=== PATIENT | male | born 1985 | race Caucasian/White ===

== ENCOUNTER 2016-07-18 23:35 | Emergency (ER) | payer SELFPAY ==
[2016-07-19 01:27] VITALS: BP 97/54; PULSE 98; TEMP 98.9; BMI 30.9
== END 2016-07-19 01:40 | disposition left against medical advice (07) ==
LOC: JER 23:35
DX: Z53.21 Procedure and treatment not carried out due to patient leaving prior to being seen by health care provider (principal)
CPT/HCPCS: 99281-25

== ENCOUNTER 2017-12-05 06:48 | Emergency (ER) | payer SELFPAY ==
[2017-12-05 07:19] VITALS: BMI 26.6
--- NOTE | 2017-12-05 07:37 | PDOC ---
History of Present Illness - General History Source: Patient Exam Limitations: No Limitations - History of Present Illness Initial Comments: 12/05/17 08:14 The patient is a 32-year-old male, with no significant past medical history, who presents to the ED with midsternal chest pain that began today at 3 AM. The patient states that the pain is worsened with movement, deep inspiration, and when he coughs. He denies any recent strenuous activity but does admit to smoking marijuana prior to his visit. The patient denies any shortness of breath. He denies any fever, chills, nausea, vomiting, diarrhea, or abdominal pain. Allergies: NKA <Hannah Barger - Last Filed: 12/05/17 08:13> <Elisabeth Leos - Last Filed: 12/05/17 16:47> - General Chief Complaint: Chest Pain Stated Complaint: CHEST DISCOMFORT Time Seen by Provider: 12/05/17 07:37 Past History <Hannah Barger - Last Filed: 12/05/17 08:13> - Past Medical History COPD: No Other medical history: denies - Immunization History Immunization Up to Date: Yes - Suicide/Smoking/Psychosocial Hx Smoking Status: Yes Smoking History: Never smoked Have you smoked in the past 12 months: No Number of Cigarettes Smoked Daily: 1 Information on smoking cessation initiated: No Hx Alcohol Use: No Drug/Substance Use Hx: No Substance Use Type: Marijuana <Elisabeth Leos - Last Filed: 12/05/17 16:47> - Past Medical History Allergies/Adverse Reactions: Allergies Allergy/AdvReac Type Severity Reaction Status Date / Time No Known Allergies Allergy Verified 12/05/17 07:16 Home Medications: Ambulatory Orders NK [No Known Home Medication] 07/19/16 Review of Systems - Review of Systems Able to Perform ROS?: Yes Comments:: 12/05/17 08:21 GENERAL/CONSTITUTIONAL: No fever or chills. No weakness. HEAD, EYES, EARS, NOSE AND THROAT: No change in vision. No ear pain or discharge. No sore throat. CARDIOVASCULAR: (+)Chest pain. No shortness of breath. RESPIRATORY: No cough, wheezing, or hemoptysis. GASTROINTESTINAL: No nausea, vomiting, diarrhea or constipation. GENITOURINARY: No dysuria, frequency, or change in urination. MUSCULOSKELETAL: No joint or muscle swelling or pain. No neck or back pain. SKIN: No rash NEUROLOGIC: No headache, vertigo, loss of consciousness, or change in strength/ sensation. ENDOCRINE: No increased thirst. No abnormal weight change. HEMATOLOGIC/LYMPHATIC: No anemia, easy bleeding, or history of blood clots. ALLERGIC/IMMUNOLOGIC: No hives or skin allergy. <Hannah Barger - Last Filed: 12/05/17 08:13> *Physical Exam - Vital Signs Last Vital Signs Temp Pulse Resp BP Pulse Ox 97.8 F 79 20 117/55 96 12/05/17 07:13 12/05/17 07:13 12/05/17 07:13 12/05/17 07:13 12/05/17 07:13 <Hannah Barger - Last Filed: 12/05/17 08:13> - Vital Signs Last Vital Signs Temp Pulse Resp BP Pulse Ox 97.8 F 79 20 117/55 96 12/05/17 07:13 12/05/17 07:13 12/05/17 07:13 12/05/17 07:13 12/05/17 07:13 - Physical Exam Comments: GENERAL: Awake, alert, and fully oriented, in no acute distress HEAD: No signs of trauma EYES: PERRLA, EOMI, sclera anicteric, conjunctiva clear ENT: Auricles normal inspection, hearing grossly normal, nares patent, oropharynx clear without exudates. Moist mucosa NECK: Normal ROM, supple, no lymphadenopathy, JVD, or masses LUNGS: Breath sounds equal, clear to auscultation bilaterally. No wheezes, and no crackles. +Tenderness to R anterior chest wall. HEART: Regular rate and rhythm, normal S1 and S2, no murmurs, rubs or gallops ABDOMEN: Soft, nontender, normoactive bowel sounds. No guarding, no rebound. No masses EXTREMITIES: Normal range of motion, no edema. No clubbing or cyanosis. No cords, erythema, or tenderness NEUROLOGICAL: Cranial nerves II through XII grossly intact. Normal speech, normal gait SKIN: Warm, Dry, normal turgor, no rashes or lesions noted. <Elisabeth Leos - Last Filed: 12/05/17 16:47> Moderate Sedation - Procedure Monitoring Vital Signs: Vital Signs Temp Pulse Resp BP Pulse Ox 97.8 F 79 20 117/55 96 12/05/17 07:13 12/05/17 07:13 12/05/17 07:13 12/05/17 07:13 12/05/17 07:13 <Hannah Barger - Last Filed: 12/05/17 08:13> - Procedure Monitoring Vital Signs: Vital Signs Temp Pulse Resp BP Pulse Ox 97.8 F 79 20 117/55 96 12/05/17 07:13 12/05/17 07:13 12/05/17 07:13 12/05/17 07:13 12/05/17 07:13 <Elisabeth Leos - Last Filed: 12/05/17 16:47> Heart Score/ECG Review - ECG Impressions Comment:: EKG read 07:38- NSR 69 bpm, no acute ST/T changes <Elisabeth Leos - Last Filed: 12/05/17 16:47> Medical Decision Making - Medical Decision Making Pt with history of marijuana use. CXR obtained, negative for ptx. Pain improved with motrin. Low risk for ACS. Stable for DC home. <Elisabeth Leos - Last Filed: 12/05/17 16:47> *DC/Admit/Observation/Transfer - Attestations Scribe Attestion: 12/05/17 08:22 Documentation prepared by Hannah Barger, acting as medical insurance claims processor for Elisabeth Leos MD. <Hannah Barger - Last Filed: 12/05/17 08:13> - Discharge Dispostion Decision to Admit order: No <Elisabeth Leos - Last Filed: 12/05/17 16:47> Diagnosis at time of Disposition: Marijuana use, Atypical chest pain - Discharge Dispostion Disposition: HOME Condition at time of disposition: Stable - Patient Instructions Printed Discharge Instructions: DI for Atypical Chest Pain
[2017-12-05] MEDS ORDERED: IBUPROFEN 600 MG TABLET (FP) PO ONE ×2 (08:01→08:17)
[2017-12-05 09:47] VITALS: BP 125/77; PULSE 74; TEMP 98.1
--- NOTE | 2017-12-05 14:21 | EKG ---
Test Reason : Blood Pressure : / mmHG Vent. Rate : 066 BPM Atrial Rate : 066 BPM P-R Int : 136 ms QRS Dur : 088 ms QT Int : 396 ms P-R-T Axes : 058 080 046 degrees QTc Int : 415 ms NORMAL SINUS RHYTHM EARLY REPOLARIZATION NORMAL ECG NO PREVIOUS ECGS AVAILABLE Confirmed by DARRYL JORDAN, HALINA ([id number]) on 12/05/2017 2:21:22 PM Referred By: Confirmed By:HALINA ANDREWS MD
== END 2017-12-05 09:47 | disposition home or self-care (01) ==
LOC: JER 06:48
DX: R07.89 Other chest pain (principal); F12.90 Cannabis use, unspecified, uncomplicated
CPT/HCPCS: 71046-TC-FY; 93005; 93010; 99283-25

== ENCOUNTER 2018-07-30 11:13 | Emergency (ER) | payer SELFPAY ==
[2018-07-30 11:41] VITALS: BP 100/62; PULSE 72; TEMP 97.6; BMI 26.6
[2018-07-30] MEDS ORDERED: AZITHROMYCIN 250 MG TABLET PO ONE (12:21)
[2018-07-30] MEDS ORDERED: AZITHROMYCIN 250 MG TABLET ONE (12:28)
--- NOTE | 2018-07-30 12:29 | PDOC ---
History of Present Illness - General Chief Complaint: Penile Drainage Stated Complaint: Cold Symptoms Time Seen by Provider: 07/30/18 12:14 - History of Present Illness Initial Comments: 07/30/18 12:23 33-year-old male without comorbidities presents for evaluation of penile discharge 2 days after unprotected sex with a stripper at a bar Past History - Past Medical History Allergies/Adverse Reactions: Allergies Allergy/AdvReac Type Severity Reaction Status Date / Time No Known Allergies Allergy Verified 07/30/18 11:35 Home Medications: Ambulatory Orders NK [No Known Home Medication] 07/19/16 COPD: No - Immunization History Immunization Up to Date: Yes - Suicide/Smoking/Psychosocial Hx Smoking Status: Yes Smoking History: Current some day smoker Have you smoked in the past 12 months: Yes Number of Cigarettes Smoked Daily: 1 Information on smoking cessation initiated: Yes Hx Alcohol Use: No Drug/Substance Use Hx: Yes (AVIVAA) Substance Use Type: Marijuana *Physical Exam - Vital Signs Last Vital Signs Temp Pulse Resp BP Pulse Ox 97.6 F 72 20 100/62 97 07/30/18 11:35 07/30/18 11:35 07/30/18 11:35 07/30/18 11:35 07/30/18 11:35 - Physical Exam Comments: 07/30/18 12:26 HEAD: NC/AT EYES: Conjuntiva clear MS: Full ROM in all joints without edema NEUROLOGIC: No gross sensory or motor deficits, NVID SKIN: Normal color and temperature no lesions or rashes Moderate Sedation - Procedure Monitoring Vital Signs: Procedure Monitoring Vital Signs Temperature 97.6 F 07/30/18 11:35 Pulse Rate 72 07/30/18 11:35 Respiratory Rate 20 07/30/18 11:35 Blood Pressure 100/62 07/30/18 11:35 O2 Sat by Pulse Oximetry (%) 97 07/30/18 11:35 Medical Decision Making - Medical Decision Making 07/30/18 12:26 HIV and syphilis testing refused will treated for gonorrhea chlamydia the patient follow-up with PCP *DC/Admit/Observation/Transfer Diagnosis at time of Disposition: Sexually transmissible disease - Discharge Dispostion Disposition: HOME Condition at time of disposition: Stable Decision to Admit order: No - Referrals Referrals: Eddi Odom MD [Staff Physician] - - Patient Instructions Printed Discharge Instructions: Chlamydia: The Silent STD, How to Detect and Treat STDs, Facts About Sexually Transmitted Infections Additional Instructions: Please follow-up with primary care provider. Return to the emergency room should symptoms worsen or go unresolved. He was treated today for gonorrhea and chlamydia. - Post Discharge Activity
[2018-07-30 13:32] LABS: URINE APPEARANCE CLEAR; URINE BILIRUBIN NEGATIVE (<2.0 mg/dL); URINE COLOR YELLOW; URINE GLUCOSE (UA) NEGATIVE (NEGATIVE); URINE KETONE NEGATIVE (NEGATIVE); URINE LEUK ESTERASE NEGATIVE (NEGATIVE); URINE NITRITE NEGATIVE (NEGATIVE); URINE PROTEIN NEGATIVE (NEGATIVE); URINE UROBILINOGEN NEGATIVE mg/dL (0.2-1.0)
== END 2018-07-30 12:36 | disposition home or self-care (01) ==
LOC: JERFT 11:13
DX: A64 Unspecified sexually transmitted disease (principal)
CPT/HCPCS: 36415; 81003; 87086; 87491; 87591; 99281-25

== ENCOUNTER 2019-08-02 15:07 | Emergency (ER) | payer SELFPAY ==
[2019-08-02 15:11] VITALS: BMI 26.6
--- NOTE | 2019-08-02 15:33 | PDOC ---
History of Present Illness - General Chief Complaint: Pain Stated Complaint: PAIN TO RT SIDE Time Seen by Provider: 08/02/19 15:15 - History of Present Illness Initial Comments: Mr. Parsons is a 34 y/o male with no significant PMH presenting with right sided chest pain that started yesterday. Reports that he had the flu several weeks ago and a productive blood tinged cough over the past couple of days. Yesterday, the right side of his chest started to hurt. Pain is sharp, intermittent, brought on by deep breathing and coughing. Pain is non reproducible. Patient drove to [place] yesterday and drove back today. Denies leg swelling. Released from prison for 1 year in June. Denies chest pain/fever/chills. Denies abdominal pain. Denies dysuria. Denies change in stool. Past History - Past Medical History Allergies/Adverse Reactions: Allergies Allergy/AdvReac Type Severity Reaction Status Date / Time No Known Allergies Allergy Verified 08/02/19 15:11 Home Medications: Ambulatory Orders NK [No Known Home Medication] 07/19/16 COPD: No - Immunization History Immunization Up to Date: Yes - Psycho Social/Smoking Cessation Hx Smoking Status: Yes Smoking History: Never smoked Have you smoked in the past 12 months: Yes Number of Cigarettes Smoked Daily: 1 Hx Alcohol Use: No Drug/Substance Use Hx: Yes (MARIJUANA) Substance Use Type: Marijuana Review of Systems - Review of Systems Comments:: GENERAL/CONSTITUTIONAL: No fever or chills. No weakness._ HEAD, EYES, EARS, NOSE AND THROAT: No change in vision. No change in hearing. No sore throat._ CARDIOVASCULAR: Reports chest pain. No shortness of breath_ RESPIRATORY: Denies cough, hemoptysis_ GASTROINTESTINAL: No nausea, vomiting, diarrhea or constipation._ GENITOURINARY: No dysuria, frequency, or change in urination._ MUSCULOSKELETAL: No joint or muscle swelling or pain. No neck or back pain._ SKIN: No rash_ NEUROLOGIC: No headache, vertigo, loss of consciousness, or change in strength/ sensation._ ENDOCRINE: No increased thirst. No abnormal weight change_ HEMATOLOGIC/LYMPHATIC: No anemia, easy bleeding, or history of blood clots._ ALLERGIC/IMMUNOLOGIC: No hives or skin allergy._ *Physical Exam - Vital Signs Last Vital Signs Temp Pulse Resp BP Pulse Ox 98 F 73 18 112/66 100 08/02/19 15:08 08/02/19 15:08 08/02/19 15:08 08/02/19 15:08 08/02/19 15:08 - Physical Exam GENERAL: Awake, alert, and oriented to person/place/time, in no acute distress_ HEAD: No signs of trauma, normoc ephalic, atraumatic _ EYES: PERRLA, EOMI, sclera anicteric, conjunctiva clear_ ENT: Hearing grossly normal, nares patent, oropharynx clear without exudates. No uvular deviation. Moist mucosa_ NECK: Normal ROM, supple, no lymphadenopathy, JVD, or masses_ CHEST: No bruising, no rash. No tenderness to palpation. LUNGS: No distress, speaks in full sentences, clear to auscultation bilaterally _ HEART: Regular rate and rhythm, normal S1 and S2, no murmurs appreciated, peripheral pulses normal and equal bilaterally._ ABDOMEN: Soft, nontender, normoactive bowel sounds. No guarding, no rebound. No masses_ EXTREMITIES: Normal inspection, Normal range of motion, no edema. No clubbing or cyanosis_ NEUROLOGICAL: Cranial nerves II through XII grossly intact. Normal speech, normal gait, no focal sensorimotor deficits _ SKIN: Warm, Dry, normal turgor, no rashes or lesions noted_ ED Treatment Course - LABORATORY CBC & Chemistry Diagram: 08/02/19 15:55 08/02/19 15:55 - RADIOLOGY Radiology Studies Ordered: Category Date Time Status CHEST PA & LAT [RAD] Stat Radiology 08/02/19 15:27 Ordered Medical Decision Making - Medical Decision Making 08/02/19 15:32 34 y/o male presenting with right sided chest pain brought on by cough and deep breathing. Drove to [place] yesterday and back today. Released from 1 year in prison in June. HEART score 1. -cbc, cmp -cxr, ekg, trop -d-dimer 08/02/19 16:00 EKG shows NSR, 65 bpm, no ST elevation/depression, QTc 426, no axis deviation. 08/02/19 16:43 CXR shows no acute intrathoracic pathology. 08/02/19 17:04 Labs reviewed. Laboratory Tests 08/02/19 08/02/19 08/02/19 15:55 15:55 15:55 WBC 6.3 RBC 5.32 Hgb 16.1 Hct 48.3 MCV 90.8 MCH 30.3 MCHC 33.4 RDW 13.3 Plt Count 184 MPV 10.1 Absolute Neuts (auto) 2.8 Neutrophils % 44.3 Lymphocytes % 41.8 H Monocytes % 9.1 Eosinophils % 4.4 Basophils % 0.4 Nucleated RBC % 0 D-Dimer Sodium 141 Potassium 4.1 Chloride 107 Carbon Dioxide 31 Anion Gap 3 L BUN 11.1 Creatinine 1.0 Est GFR (CKD-EPI)AfAm 114.11 Est GFR (CKD-EPI)NonAf 98.45 Random Glucose 82 Calcium 8.6 Total Bilirubin 0.2 AST 41 H ALT 68 H Alkaline Phosphatase 96 Creatine Kinase 94 Troponin I < 0.02 Total Protein 6.8 Albumin 3.5 08/02/19 15:55 WBC RBC Hgb Hct MCV MCH MCHC RDW Plt Count MPV Absolute Neuts (auto) Neutrophils % Lymphocytes % Monocytes % Eosinophils % Basophils % Nucleated RBC % D-Dimer 372 Sodium Potassium Chloride Carbon Dioxide Anion Gap BUN Creatinine Est GFR (CKD-EPI)AfAm Est GFR (CKD-EPI)NonAf Random Glucose Calcium Total Bilirubin AST ALT Alkaline Phosphatase Creatine Kinase Troponin I Total Protein Albumin 08/02/19 17:11 Pt reassessed. Reports some improvement with tylenol. Plan to d/c home with tylenol and motrin and rest. D/w the pt who verbalized understanding and agreement with plan. All questions answered. Return precautions given. Discharge - Discharge Information Problems reviewed: Yes Clinical Impression/Diagnosis: Costochondral chest pain, Viral URI with cough Condition: Stable Disposition: HOME - Admission No - Follow up/Referral Referrals: Fab Gay MD [Staff Physician] - - Patient Discharge Instructions Additional Instructions: Please take Tylenol and Motrin as needed for your pain (follow instructions on the package). Please continue to stay hydrated. Please make an appointment with a primary care doctor (referral provided here) if your symptoms do not improve. If you experience any new, worsening, or concerning symptoms, including new or different chest pain, shortness of breath, leg swelling, or any other concerns, please return to the emergency department. - Post Discharge Activity
[2019-08-02] MEDS ORDERED: ACETAMINOPHEN 1000 MG/100 ML VIAL (NON FORMULARY) IVPB ONE (15:54)
[2019-08-02] MEDS ORDERED: ACETAMINOPHEN INJECTION 100 ML IVPB ONE (15:56)
--- NOTE | 2019-08-02 16:10 | PDOC ---
Documentation entered by Kristine Carver SCRIBE, acting as scribe for Jermaine Davenport MD. Jermaine Davenport MD: This documentation has been prepared by the [place], SCRIBE, under my direction and personally reviewed by me in its entirety. I confirm that the documentation accurately reflects all work, treatment, procedures, and medical decision making performed by me. Attending Attestation - Resident Resident Name: Jackelin Marshallhan - ED Attending Attestation I have performed the following: I have examined & evaluated the patient, The case was reviewed & discussed with the resident, I agree w/resident's findings & plan, Exceptions are as noted - HPI HPI: 08/02/19 16:10 34 M with no PMH presents to ED with R sided chest pain. Pt reports that he had a URI several weeks ago. Over the past few days, he began to develop a cough. Reports blood streaks in the sputum. Denies F/C. Yesterday, noted that his R chest started to hurt. Pain is worse with deep inspiration and coughing. - Physicial Exam PE: 08/02/19 16:11 "GENERAL: Awake, alert, and fully oriented, in no acute distress. HEAD: No signs of trauma EYES: PERRLA, EOMI, sclera anicteric, conjunctiva clear ENT: Auricles normal inspection, hearing grossly normal, nares patent, oropharynx clear without exudates. Moist mucosa NECK: Nontender, no stepoffs, Normal ROM, supple, no lymphadenopathy, JVD, or masses LUNGS: Breath sounds equal, clear to auscultation bilaterally. No wheezes, and no crackles HEART: Regular rate and rhythm, normal S1 and S2, no murmurs, rubs or gallops ABDOMEN: Soft, nontender, normoactive bowel sounds. No guarding, no rebound. No masses EXTREMITIES: Normal range of motion, no edema. No clubbing or cyanosis. No cords, erythema, or tenderness NEUROLOGICAL: Cranial nerves II through XII intact. 5/5 strength and sensation in all extremities, Normal speech, normal gait, normal cerebellar function SKIN: Warm, Dry, normal turgor, no rashes or lesions noted. - Medical Decision Making 08/02/19 16:12 34 M with pleuritic R side chest pain. Likely 2/2 URI. Will r/o PNA. PE unlikely but will send Ddimer. - Labs, trop, ddimer - CXR Labs and XR wnl Pt is well appearing, with normal vitals. Clinically stable for DC at this time. I discussed the physical exam findings, ancillary test results and final diagnoses with the patient. I answered all of the patient's questions. The patient was satisfied with the care received and felt comfortable with the discharge plan and treatment plan. The patient agrees to follow up with the primary care physician within 24-72 hours.
[2019-08-02 16:23] LABS: BASO % 0.4 % (0-2.0); EOS % 4.4 % (0-4.5); HEMATOCRIT 48.3 % (35.4-49); HEMOGLOBIN 16.1 GM/dL (11.7-16.9); LYMPH % 41.8 % (8-40); MCH 30.3 pg (25.7-33.7); MCHC 33.4 g/dl (32.0-35.9); MEAN CELL VOLUME 90.8 fl (80-96); MEAN PLT VOLUME 10.1 fl (7.5-11.1); MONO % 9.1 % (3.8-10.2); NEUT % 44.3 % (42.8-82.8); PLATELET COUNT 184 K/MM3 (134-434); RBC 5.32 M/mm3 (4.00-5.60); RDW 13.3 % (11.9-15.9); WHITE BLOOD COUNT 6.3 K/mm3 (4.0-10.0)
[2019-08-02 17:01] LABS: ALBUMIN 3.5 g/dl (3.4-5.0); BILIRUBIN,TOTAL 0.2 mg/dL (0.2-1); BLOOD UREA NITROGEN 11.1 mg/dL (7-18); CALCIUM 8.6 mg/dL (8.5-10.1); POTASSIUM 4.1 mmol/L (3.5-5.1); TOT PROT 6.8 g/dl (6.4-8.2)
[2019-08-02 17:32] VITALS: BP 104/79; PULSE 81; TEMP 98.5
--- NOTE | 2019-08-03 11:03 | EKG ---
Test Reason : Blood Pressure : / mmHG Vent. Rate : 065 BPM Atrial Rate : 065 BPM P-R Int : 138 ms QRS Dur : 088 ms QT Int : 410 ms P-R-T Axes : 057 073 041 degrees QTc Int : 426 ms NORMAL SINUS RHYTHM POSSIBLE LEFT ATRIAL ENLARGEMENT EARLY REPOLARIZATION BORDERLINE ECG WHEN COMPARED WITH ECG OF 05-DEC-2017 07:25, NO SIGNIFICANT CHANGE WAS FOUND Confirmed by MOSHE JORDAN, NIGEL ([id number]) on 08/03/2019 11:02:42 AM Referred By: Confirmed By:NIGEL MESA MD
== END 2019-08-02 17:33 | disposition home or self-care (01) ==
LOC: JER 15:07
PROC: 3E033NZ Introduction of Analgesics, Hypnotics, Sedatives into Peripheral Vein, Percutaneous Approach (ICD-10-PCS; principal; 2019-08-02)
DX: M94.0 Chondrocostal junction syndrome [Tietze] (principal); J06.9 Acute upper respiratory infection, unspecified; B97.89 Other viral agents as the cause of diseases classified elsewhere
CPT/HCPCS: 36415; 71046-TC-FY; 80053; 82550; 84484; 85025; 85379; 93005; 93010; 99283-25; J0131